=== PATIENT | female | born 1990 | race Caucasian/White ===

== ENCOUNTER 2023-11-10 16:09 | Emergency (ER) | payer MEDICAID ==
[~2023-11-10] VITALS: Ht 157.5 cm; Wt 78.0 kg
[2023-11-10 16:51] LABS: BASOPHILS # (AUTO) 0.1 K/UL (0.0-0.2); BASOPHILS % (AUTO) 0.6 % (0.0-2.0); EOSINOPHILS % (AUTO) 0.4 % (0.0-7.0); HEMATOCRIT 39.5 % (31.2-41.9); HEMOGLOBIN 13.2 g/dL (10.9-14.3); LYMPHOCYTES # (AUTO) 2.7 K/uL (0.8-4.8); LYMPHOCYTES % (AUTO) 28.8 % (20.5-51.5); MEAN CORPUSCULAR HEMOGLOBIN 30.9 uug (24.7-32.8); MEAN CORPUSCULAR HGB CONC 33 g/dL (32.3-35.6); MEAN CORPUSCULAR VOLUME 92.7 fL (75.5-95.3); MONOCYTES # (AUTO) 0.8 K/uL (0.1-1.30); MONOCYTES % (AUTO) 8.2 % (0.0-11.0); NEUTROPHILS # (AUTO) 5.7 K/uL (1.8-8.9); PLATELET COUNT (AUTO) 281 K/uL (179-408); RED BLOOD CELL COUNT(AUTO) 4.27 MIL/uL (3.63-4.92); RED CELL DISTRIBUTION WIDTH 13.1 % (12.3-17.7); WHITE BLOOD COUNT (AUTO) 9.2 K/uL (3.8-11.8)
[2023-11-10 16:52] LABS: *BILIRUBIN,URIN NEGATIVE (NEGATIVE); *CLARITY,URINE CLEAR (CLEAR); *COLOR,URINE YELLOW (YELLOW); *KETONES,URINE NEGATIVE (NEGATIVE); *PROTEIN,URINE NEGATIVE (NEGATIVE); *UROBILINOGEN,URINE 0.2 E.U./dl (NORMAL); LEUKOCYTE ESTERASE ,URINE NEGATIVE (NEGATIVE); NITRITE, URINE NEGATIVE (NEGATIVE); PH,URINE 5.5 (5.0-8.0); UGLUCOSE NEGATIVE (NEGATIVE)
[2023-11-10 16:53] LABS: *BLOOD, URINE TRACE (NEGATIVE)
[2023-11-10 16:55] LABS: DIFFERENTIAL COMMENT 1
[2023-11-10 16:58] LABS: CREATININE 0.6 mg/dL (0.6-1.3); POTASSIUM 3.5 mmol/L (3.5-5.1)
[2023-11-10 16:59] LABS: *URINE HCG, QUAL NEGATIVE (NEGATIVE)
[2023-11-10 17:11] LABS: RBC,URINE 0-3 /HPF (0-3); WBC,URINE 0-3 /HPF (0-3)
[2023-11-10 17:12] LABS: BACTERIA,URINE FEW /HPF (NONE SEEN); SQUAMOUS EPITHELIAL CELL,UR MODERATE /HPF (NONE SEEN)
[2023-11-10] MEDS ORDERED: METR70GE17 VG (17:24)
[2023-11-10] MEDS ORDERED: ACET1TAB23 PO (17:52)
[2023-11-10 18:00] VITALS: BP 121/71; O2SAT 99
== END 2023-11-10 18:01 | disposition home or self-care (01) ==
LOC: ER 16:24
DX: N83.202 Unspecified ovarian cyst, left side (principal); R10.2 Pelvic and perineal pain; N76.0 Acute vaginitis; B96.89 Other specified bacterial agents as the cause of diseases classified elsewhere; Z79.899 Other long term (current) drug therapy; Z88.8 Allergy status to other drugs, medicaments and biological substances
CPT/HCPCS: 36415; 76856; 84703; 85025; 87210; A4606; A4663

== ENCOUNTER 2023-11-16 16:41 | Emergency (ER) | payer MEDICAID ==
[~2023-11-16] VITALS: Ht 157.5 cm; Wt 70.3 kg
[~2023-11-16 16:41] MED LIST: ACET1TAB23 PO; METR70GE17 VG
[2023-11-16 17:05] LABS: BASOPHILS # (AUTO) 0.1 K/UL (0.0-0.2); BASOPHILS % (AUTO) 0.9 % (0.0-2.0); EOSINOPHILS # (AUTO) 0.1 K/uL (0.0-0.7); EOSINOPHILS % (AUTO) 0.7 % (0.0-7.0); HEMATOCRIT 38.2 % (31.2-41.9); HEMOGLOBIN 12.8 g/dL (10.9-14.3); LYMPHOCYTES # (AUTO) 2.5 K/uL (0.8-4.8); LYMPHOCYTES % (AUTO) 26.1 % (20.5-51.5); MEAN CORPUSCULAR HEMOGLOBIN 30.7 uug (24.7-32.8); MEAN CORPUSCULAR HGB CONC 34 g/dL (32.3-35.6); MEAN CORPUSCULAR VOLUME 91.6 fL (75.5-95.3); MONOCYTES # (AUTO) 0.8 K/uL (0.1-1.30); MONOCYTES % (AUTO) 8.6 % (0.0-11.0); NEUTROPHILS # (AUTO) 6.2 K/uL (1.8-8.9); NEUTROPHILS % (AUTO) 63.7 % (38.5-71.5); PLATELET COUNT (AUTO) 288 K/uL (179-408); RED BLOOD CELL COUNT(AUTO) 4.17 MIL/uL (3.63-4.92); RED CELL DISTRIBUTION WIDTH 13.2 % (12.3-17.7); WHITE BLOOD COUNT (AUTO) 9.7 K/uL (3.8-11.8)
[2023-11-16 17:14] LABS: DIFFERENTIAL COMMENT 1
[2023-11-16 17:19] LABS: CALCIUM 8.7 mg/dL (8.5-10.1); CARBON DIOXIDE 24 mmol/L (21-32); CHLORIDE 104 mmol/L (98-107); CREATININE 0.6 mg/dL (0.6-1.3); GLUCOSE 86 mg/dL (74-106); POTASSIUM 3.7 mmol/L (3.5-5.1); SODIUM SERUM 138 mmol/L (136-145); UREA NITROGEN, BLOOD 12 mg/dL (7-18)
[2023-11-16 17:26] LABS: ALANINE AMINOTRANSFERASE 15 U/L (14-59); ALBUMIN 3.5 g/dL (3.4-5.0); ALKALINE PHOSPHATASE 61 U/L (50-136); ASPARTATE AMINOTRANSFERASE 7 U/L (15-37); BILIRUBIN,DIRECT 0.1 mg/dL (0.0-0.2); BILIRUBIN,TOTAL 0.2 mg/dL (0.2-1.0)
[2023-11-16 17:35] LABS: PREGNANCY TEST SERUM QUAN < 1 miul/L (0-6)
[2023-11-16] MEDS ORDERED: IV NORMAL SALINE 250 ML IV ONE (17:42)
[2023-11-16] MEDS ORDERED: IOHEXOL 300MG/ML 100 ML INFUS..BTL ONE (17:42)
[2023-11-16] MEDS ORDERED: SWABABLE VALVE TRANSFER SET EA MC ONE (17:43)
[2023-11-16 18:08] LABS: *BILIRUBIN,URIN NEGATIVE (NEGATIVE); *CLARITY,URINE CLEAR (CLEAR); *COLOR,URINE YELLOW (YELLOW); *KETONES,URINE NEGATIVE (NEGATIVE); *PROTEIN,URINE NEGATIVE (NEGATIVE); *UROBILINOGEN,URINE 0.2 E.U./dl (NORMAL); LEUKOCYTE ESTERASE ,URINE NEGATIVE (NEGATIVE); NITRITE, URINE NEGATIVE (NEGATIVE); PH,URINE 5.5 (5.0-8.0); UGLUCOSE NEGATIVE (NEGATIVE)
[2023-11-16 18:12] LABS: *BLOOD, URINE TRACE (NEGATIVE)
[2023-11-16 18:54] LABS: BACTERIA,URINE NONE SEEN /HPF (NONE SEEN); RBC,URINE 0-3 /HPF (0-3); SQUAMOUS EPITHELIAL CELL,UR MODERATE /HPF (NONE SEEN); WBC,URINE NONE SEEN /HPF (0-3)
[2023-11-16] MEDS ORDERED: TRAM50TA2 PO (20:05)
[2023-11-16] MEDS ORDERED: METR-147 PO (20:05)
[2023-11-16] MEDS ORDERED: PHEN-705 PO (20:05)
[2023-11-16 20:20] VITALS: BP 119/79; O2SAT 99
== END 2023-11-16 20:21 | disposition home or self-care (01) ==
LOC: ER 16:44
DX: N83.202 Unspecified ovarian cyst, left side (principal); R10.2 Pelvic and perineal pain; N76.0 Acute vaginitis; B96.89 Other specified bacterial agents as the cause of diseases classified elsewhere; R30.0 Dysuria; Z88.8 Allergy status to other drugs, medicaments and biological substances; Z79.899 Other long term (current) drug therapy
CPT/HCPCS: 99285; 74177; 76856; 80076; 80048; 81001; 85025; 84702; 36415; Q9967; A4606; A4663